=== PATIENT | male | born 1955 ===

== ENCOUNTER 2018-07-16 17:38 | Emergency (ER) | payer MEDICAID, OTHER ==
--- NOTE | 2018-07-16 19:52 | ED PDOC ---
Lower Extremity Pain/Injury Time Seen by Provider: 07/16/18 19:14 Chief Complaint (Nursing): Lower Extremity Problem/Injury History Per: Patient History/Exam Limitations: no limitations Onset/Duration Of Symptoms: Days Additional Complaint(s): Hx of HTN and Gout presenting with extremity swelling x 2.5 weeks. States his legs and hands have been getting progressively more and more swollen and his belly too. States he tries to adhere to a low salt diet but admits he can cut back more. Denies chest pain or shortness of breath. States he has no insurance and hasn't been able to follow up with a PMD. Denies fevers, cough, shortness of breath, chest pain, or any other symptoms. Past Medical History Vital Signs: Last Vital Signs Temp 98.3 F 07/16/18 18:25 Pulse 77 07/16/18 18:25 Resp 20 07/16/18 18:25 BP 140/69 07/16/18 18:25 Pulse Ox 95 07/16/18 18:25 - Medical History PMH: Hiatal Hernia, HTN Denies: Chronic Kidney Disease - Family History Family History: States: Unknown Family Hx - Home Medications Home Medications: Ambulatory Orders Medication Instructions Recorded Furosemide [Lasix] 20 mg PO DAILY #30 tablet 07/16/18 - Allergies Allergies/Adverse Reactions: Allergies Allergy/AdvReac Type Severity Reaction Status Date / Time No Known Allergies Allergy Verified 07/16/18 18:25 Review of Systems ROS Statement: Except As Marked, All Systems Reviewed And Found Negative Musculoskeletal: Positive for: Other (Arm and Hand swelling) Physical Exam - Reviewed Nursing Documentation Reviewed: Yes Vital Signs Reviewed: Yes - Physical Exam Appears: Positive for: Well, Non-toxic, No Acute Distress Head Exam: Positive for: ATRAUMATIC, NORMAL INSPECTION, NORMOCEPHALIC Skin: Positive for: Normal Color, Warm, DRY Eye Exam: Positive for: EOMI, Normal appearance, PERRL ENT: Positive for: Normal ENT Inspection Neck: Positive for: Normal, Painless ROM Cardiovascular/Chest: Positive for: Regular Rate, Rhythm Respiratory: Positive for: CNT, Normal Breath Sounds Gastrointestinal/Abdominal: Positive for: Normal Exam, Bowel Sounds, Soft, Other (Obese abdomen). Negative for: Tenderness Back: Positive for: Normal Inspection Extremity: Positive for: Normal ROM, Pedal Edema (2+ pitting edema to knees) Neurologic/Psych: Positive for: Alert, Oriented - Laboratory Results Result Diagrams: 07/16/18 19:52 07/16/18 19:52 - ECG O2 Sat by Pulse Oximetry: 95 Pulse Ox Interpretation: Normal Medical Decision Making Medical Decision MakinPM Hx of HTN, Gout presenting with extremity swelling -well appearing, comfortable, normal vitals -most likely water retention due to poor diet -will r/o CHF, ARF, DVT with testing 900PM Workup negative Recommended lasix, compresison stockings, and low sodium diet Advised followup with PMD Well appearing upon discharge Disposition - Clinical Impression Clinical Impression: Edema - Disposition Referrals: [facility] [place] [Outside] Disposition: Routine/Home Disposition Time: 21:00 Condition: STABLE Prescriptions: Furosemide [Lasix] 20 mg PO DAILY #30 tablet Instructions: Dependent Edema (DC), Low Salt Diet Forms: [facility] (Faroese)
[2018-07-16 19:56] LABS: HEMOGLOBIN 14.4 g/dL (12.0-18.0); MEAN CELL VOLUME 87.7 fl (80.0-94.0); MEAN CORPUSCULAR HEMOGLOBIN 29.2 pg (27.0-31.0); MEAN CORPUSCULAR HGB CONC 33.3 g/dL (33.0-37.0); RBC 4.92 Mil/uL (4.40-5.90); RED CELL DISTRIBUTION WIDTH 15.1 % (11.5-14.5); WHITE BLOOD COUNT 6.4 K/uL (4.8-10.8)
[2018-07-16 20:05] LABS: BLOOD UREA NITROGEN 17 mg/dl (9-20); CALCIUM 9.1 mg/dL (8.4-10.2); GFR NON-AFRICAN AMERICAN > 60
[2018-07-16 20:14] LABS: B-TYPE NATRIURETIC PEPTIDE 72.4 pg/ml (0-900)
[2018-07-16 21:40] VITALS: BP 130/73; PULSE 62; RESP 16; TEMP 98
[2018-07-17 02:29] VITALS: O2SAT 95
--- NOTE | 2018-07-17 12:28 | US ---
Date of service: 07/16/2018 PROCEDURE: Bilateral lower extremity venous duplex Doppler. HISTORY: bilateral leg swelling COMPARISON: None available. TECHNIQUE: Bilateral common femoral, superficial femoral, popliteal and posterior tibial veins were evaluated. Flow was assessed with color Doppler, compressibility, assessment of phasic flow and augmentation response. FINDINGS: COMMON FEMORAL VEIN: Right CFV: Unremarkable. Left CFV: Unremarkable. SUPERFICIAL FEMORAL VEIN: Right SFV: Unremarkable. Left SFV: Unremarkable. POPLITEAL VEIN: Right Popliteal: Unremarkable. Left Popliteal: Unremarkable. POSTERIOR TIBIAL VEIN: Right PTV: Unremarkable. Left PTV: Unremarkable. OTHER FINDINGS: There is and approximately 3.3 x 1.5 cm nonspecific right inguinal lymph IMPRESSION: No evidence of deep venous thrombosis.
== END 2018-07-16 21:39 | disposition home or self-care (01) ==
LOC: H.ER 17:38
DX: R60.0 Localized edema (principal); I10 Essential (primary) hypertension